=== PATIENT | female | born 1990 | race Two or more races ===

== ENCOUNTER 2021-06-13 08:35 | Emergency (ER) | payer OTHER ==
[~2021-06-13] VITALS: Ht 167.6 cm; Wt 79.4 kg
[2021-06-13 09:55] VITALS: BP 144/91
[2021-06-13] MEDS ORDERED: CYCL-837 PO (13:03)
[2021-06-13] MEDS ORDERED: IBUP800T27 PO (13:03)
== END 2021-06-13 13:10 | disposition home or self-care (01) ==
LOC: ER 08:35
DX: S16.1XXA Strain of muscle, fascia and tendon at neck level, initial encounter (principal); S39.012A Strain of muscle, fascia and tendon of lower back, initial encounter; E03.9 Hypothyroidism, unspecified; Z79.1 Long term (current) use of non-steroidal anti-inflammatories (NSAID); Z79.899 Other long term (current) drug therapy; V43.52XA Car driver injured in collision with other type car in traffic accident, initial encounter; Y93.89 Activity, other specified; Y92.89 Other specified places as the place of occurrence of the external cause; Y99.8 Other external cause status
CPT/HCPCS: 72040; 72070